=== PATIENT | female | born 1985 | race Caucasian/White ===

== ENCOUNTER 2020-01-24 21:57 | Emergency (ER) | payer OTHER ==
[2020-01-24 22:25] LABS: Bilirubin Negative (Negative); Blood, Urine Negative (Negative); Clarity Clear (Clear); Glucose, Urine (Dipstick) Normal (Negative); Leukocyte Negative Leu/uL (Negative); Nitrite Negative (Negative); Protein, Urine (Dipstick) Negative (Neg-Trace); Urobilinogen Normal mg/dL (Less than 2)
[2020-01-24 22:37] LABS: #Eosinphils 0.1 thou/uL (0.0-0.7); #Lymphocytes 3.1 thou/uL (1.20-3.40); #Monocytes 0.6 thou/uL (0.11-0.59); #Neutrophils 5.2 thou/uL (1.40-6.50); %Basophils 0.5 % (0.0-1.0); %Eosinophils 1.2 % (0.0-10.0); %Lymphocytes 34.1 % (21.0-51.0); %Neutrophils 57.3 % (42.0-75.0); Hemoglobin 13.4 g/dL (12.0-16.0); Mean Corpuscular HGB CONC 35.5 g/dL (32.0-36.0); Mean Corpuscular Hemoglobin 31.4 pg (27.0-31.0); Mean Corpuscular Volume 88.5 fL (78.0-98.0); Mean Platelet Volume 6.6 fL (7.4-10.4); Platelet Count 275 thou/uL (130-400); RBC Distribution Width 11.6 % (11.5-14.5); Red Blood Cell (RBC) Count 4.26 mill/uL (4.20-5.40); White Blood Cell (WBC) Count 9.1 thou/uL (4.8-10.8)
--- NOTE | 2020-01-24 23:11 | ULT ---
Exam: Endovaginal pelvic ultrasound HISTORY: Right lower quadrant pain. patient TECHNIQUE: Endovaginal imaging of the pelvis is performed. Ovaries are interrogated with grayscale, c olor flow, Doppler imaging and spectral waveform analysis FINDINGS: The uterus is identified, measuring 6.6 x 12.1 x 7.3 cm Within the endometrium, there is an anechoic focus which may represent a gestational sac. Mean sac di ameter is 1.1 cm, suggesting a gestational age of 5 weeks 6 days. No pole. Questionable yolk sac. Right ovary has a normal echotexture measuring 1.9 x 2.9 x 1.6 cm Left ovary has a normal echotexture measuring 3.1 x 2.9 x 2.5 cm No free fluid Ovarian Doppler: Vascular flow to both ovaries IMPRESSION: 1. Anechoic focus in the endometrium likely representing a gestational sac. Questionable yolk sac. No definite pole. Gestational age by mean sac diameter is 5 weeks 6 days. Findings likely representing early intrauterine gestation. Follow-up ultrasound and serial beta hCG is recommended.
== END 2020-01-24 23:24 | disposition home or self-care (01) ==
LOC: ERS 21:57
DX: O26.891 Other specified pregnancy related conditions, first trimester (principal); R10.31 Right lower quadrant pain; O99.211 Obesity complicating pregnancy, first trimester; E66.9 Obesity, unspecified; Z3A.01 Less than 8 weeks gestation of pregnancy
CPT/HCPCS: 36415; 76856; 81003; 84702; 85025; 86900; 86901

== ENCOUNTER 2020-06-04 14:51 | Day surgery (SDC) | payer OTHER ==
[2020-06-04 15:53] VITALS: BP 130/63; TEMP 98; BMI 48.4
[2020-06-04] MEDS ORDERED: hydrALAZINE 20 MG/ML VIAL SLOW IVP PRN (16:22)
--- NOTE | 2020-06-04 16:48 | PDOC.BPN ---
- Brief Progress Note H&P Addendum: Patient seen at bedside. Surgical HX also includes prior renal lithotripsy and sent placed (not sure of side...has been removed). On Exam: NAD No gross evidence of VB or LOF Valsalva and cough test neg at perineum Await results. I stated that SSE may still be required if evidence of leakage. I suspect this is sweat and moisture as there is alot of redundant folds at perninuem (BMI) Also, there is bilateral evidence of tinea crusis at inguinal area. RX with OTC antifungals. I explained the tests ordered to her and the FFN was collected in vase the CX is short.
--- NOTE | 2020-06-04 16:52 | HP ---
TIME OF EVALUATION: Roughly 1620. LOCATION: Labor and Delivery Triage. Patient of Dr. Coppola. EGA is 24 weeks. HISTORY OF PRESENT ILLNESS: This is a 34-year-old, G2, P1, who states that she is having lower pelvic pain that started as cramping and then was sharp pain, worsening at 0800 today. She states that the pain is lower pelvic and abdominal, but that the pressure is mainly vaginal. She has no vaginal bleeding or leakage of fluid. However, she does state that at the end of the day, her "panties are wet." She is unsure if this is sweat or true leakage of fluid. Nonetheless, per RN report, no gush of fluid has been reported. She has good movement. She has no fevers. REVIEW OF SYSTEMS: Complete review of systems was checked and is otherwise negative unless specified in the HPI. PAST MEDICAL HISTORY: Negative for diabetes or hypertension. She does have history of migraine. PAST SURGICAL HISTORY: Significant for past cholecystectomy and ventral hernia repair with mesh. OB HISTORY: She is a G2, P1 with one prior vaginal delivery at 41 weeks without issues. SOCIAL HISTORY: Otherwise negative. ALLERGIES: NO KNOWN DRUG ALLERGIES. PHYSICAL EXAMINATION: VITAL SIGNS: Show a blood pressure of 130/63, pulse is 18, O2 saturation is 98%. Temperature is 98.0, pulse is 94, and her BMI is 48.4. GENERAL: Clinically, she is in no acute distress. RESPIRATIONS: Unlabored per initial popcorn vendor. ABDOMEN: Nontender. There is no gross evidence of bleeding per popcorn vendor (my assessment is pending). MONITOR: heart tones are in the 140s and are reactive. There is no evidence of contractions on toco, but this may be reflection of her BMI. ASSESSMENT: This is a 34-year-old, G2, P1, at 24 weeks with lower pelvic pain, not otherwise specified. Unsure history of leakage of fluid. PLAN: 1. Although I do not suspect gross rupture of membranes, we will check AmniSure as a screen. At bedside, I will do a Valsalva check, and if there is evidence of leakage, we will perform sterile spec exam. 2. I have ordered a transvaginal ultrasound for cervical length due to her complaint of pelvic pressure at 24 weeks. 3. I have also ordered a cath UA to rule out UTI as the patient's cause of symptoms. 4. I have ordered a CMP and a CBC for conservative management. 5. No eminent evidence of labor at this time. Job ID: [id number]
[2020-06-04 17:00] LABS: Amnisure Internal Control QC ACCEPTABLE (ACCEPTABLE); Amnisure Test No Membranes Rupture (No Rupture)
[2020-06-04 17:01] LABS: Bacteria/HPF None Seen HPF (None Seen); Bilirubin Negative (Negative); Blood, Urine Negative (Negative); Clarity Clear (Clear); Glucose, Urine (Dipstick) Greater than 1000 mg/dL (Negative); Ketone, Urine Trace mg/dL (Negative); Leukocyte Negative Leu/uL (Negative); Nitrite Negative (Negative); Protein, Urine (Dipstick) Negative (Neg-Trace); RBC/HPF 0-3 HPF (0-3); Specific Gravity, Urine 1.033 (1.002-1.036); Squamous Epithelial 0-3 HPF (0-3); Urobilinogen Normal mg/dL (Less than 2); WBC/HPF 0-3 HPF (0-3); pH, Urine 5.5 (5.0-9.0)
[2020-06-04 17:06] LABS: Urine Culture Reflex No No
[2020-06-04 17:18] LABS: #Eosinphils 0.1 thou/uL (0.0-0.7); #Lymphocytes 2.2 thou/uL (1.20-3.40); #Monocytes 0.7 thou/uL (0.11-0.59); #Neutrophils 6.1 thou/uL (1.40-6.50); %Basophils 0.2 % (0.0-1.0); %Eosinophils 1.2 % (0.0-10.0); %Lymphocytes 23.9 % (21.0-51.0); %Monocytes 7.4 % (0.0-10.0); %Neutrophils 67.3 % (42.0-75.0); Hemoglobin 12.3 g/dL (12.0-16.0); Mean Corpuscular HGB CONC 33.6 g/dL (32.0-36.0); Mean Corpuscular Hemoglobin 29.3 pg (27.0-31.0); Mean Corpuscular Volume 87.2 fL (78.0-98.0); Mean Platelet Volume 6.8 fL (7.4-10.4); Platelet Count 242 thou/uL (130-400); White Blood Cell (WBC) Count 9.1 thou/uL (4.8-10.8)
[2020-06-04 17:34] LABS: ALT (SGPT) 12 U/L (8-55); AST (SGOT) 11 U/L (5-34); Albumin 3.6 g/dL (3.5-5.0); Alkaline Phosphatase 59 U/L (40-110); Anion Gap 12 mmol/L (10-20); BUN (Urea Nitrogen) 8 mg/dL (7.0-18.7); Bilirubin, Total 0.3 mg/dL (0.2-1.2); Calc. Creatinine Clearance 219 mL/min (70-130); Calcium 8.9 mg/dL (7.8-10.44); Carbon Dioxide 24 mmol/L (22-29); Chloride 102 mmol/L (98-107); Estimated GFR-MDRD Greater than 90; Glucose 138 mg/dL (70-105); Protein, Total 6.6 g/dL (6.0-8.3); Sodium 134 mmol/L (136-145)
--- NOTE | 2020-06-04 17:46 | ULT ---
Exam: Limited OB ultrasound TECHNIQUE: Transabdominal and endovaginal imaging of the pelvis is performed. HISTORY: 24 week patient. Evaluate cervical length. FINDINGS: position: Transverse heart tones: 143 bpm Cervix: There is a 4 cm anechoic focus in the cervix likely representing a nabothian cyst. Cervical length: 4 cm. IMPRESSION: Cervical length is 4 cm.
--- NOTE | 2020-06-04 18:38 | PDOC.BPN ---
- Brief Progress Note Pt is a 34yo @ 24wks who presents for evaluation of abdominal pain. We were asked to come and see patient, review labs and inform her she is stable for discharge due to program consultant laborist and back up being called in for emergency surgery. I spoke with patient and informed her that Amnisure was negative, Vag US showed cervical length of 4cm, labs were unremarkable except for UA showing glucose. VSS and within normal limits. FHT were cat 1 with baseline 140s, mod variability, no accels or decels. Patient states that she has a follow up appointment with Dr Coppola next , and that her abdominal pain has mostly resolved and only feels like some "pressure down there". Pt had no questions, felt comfortable with discharge today and will f/u with tool and die manager next week. Ann Bobo, PGY1. Dayami Hastings, PGY3
--- NOTE | 2020-06-04 19:07 | PDOC.BPN ---
- Brief Progress Note PostDischarge note: Patient completed her eval with the house officers assuming care as I was called for an urgent emergency in the OR. Please see their notes.
== END 2020-06-04 18:52 | disposition home or self-care (01) ==
LOC: L&D/OP 14:51
PROVIDERS: ATTEND Obstetrics & Gynecology
DX: O99.89 Other specified diseases and conditions complicating pregnancy, childbirth and the puerperium (principal); R10.2 Pelvic and perineal pain; O09.522 Supervision of elderly multigravida, second trimester; Z3A.24 24 weeks gestation of pregnancy
CPT/HCPCS: 36415; 51701; 80053; 81001; 84112; 85025; 99284

== ENCOUNTER 2020-08-24 11:59 | Day surgery (SDC) | payer OTHER ==
[2020-08-24 12:48] VITALS: BMI 50.5
--- NOTE | 2020-08-24 13:16 | PDOC.LDHP ---
Labor and Delivery H&P HPI: CC: Possible CTX at 35 weeks [address] Coppola HPI: 34 yo with last delivery complicated with shoulder dystocia, here with poss CTX every 3-5 minutes or so since 1030 this AM. No VB, no LOF. She has gestational DM on Lantus and known poly. This baby will be via CS. Review of Systems: no LOF, no VB, no cough, no MARIE, good FM, no changes in vision. Current gestational age (weeks): 35 (6 days) Dating criteria: last menstrual period Grav: 3 Para: 1 OB History Details: HX gest DM on Lantus this . Has known Poly This will be vis CS as scheduled per Anat Current complications: gestational diabetes (Lantus) Abnormal US findings: Yes (Poly in past) Past Medical History: None Current medications: pre- vitamins, other (Lantus) Allergies/Adverse Reactions: Allergies Allergy/AdvReac Type Severity Reaction Status Date / Time No Known Allergies Allergy Unverified 08/24/20 12:46 Social history: none - Physical Exam Vital signs reviewed and normal: yes (88 97% RR20 124/69) General: resting Lungs: CTAB Abdomen: gravid (poly) Extremeties: no edema FHT: category 1 [place] contractions every: irritability - Assessment 35 weeks 6 days late with GDM, on lantus, poly, r/o labor - Plan Plan: observation in L&D (check CX (RN doing now). I have seen her at bedside Plan reviewed. reviewed poly and GDM with her.)
[2020-08-24] MEDS ORDERED: hydrALAZINE 20 MG/ML VIAL SLOW IVP PRN (13:20)
--- NOTE | 2020-08-24 13:21 | PDOC.BPN ---
- Brief Progress Note Patient seen See H&P NST done for GDM and Poly...reactive
== END 2020-08-24 13:47 | disposition home or self-care (01) ==
LOC: L&D/OP 11:59
PROVIDERS: ATTEND Obstetrics & Gynecology
DX: O47.03 False labor before 37 completed weeks of gestation, third trimester (principal); O24.414 Gestational diabetes mellitus in pregnancy, insulin controlled; O09.523 Supervision of elderly multigravida, third trimester; Z3A.35 35 weeks gestation of pregnancy
CPT/HCPCS: 99282

== ENCOUNTER 2020-09-04 09:22 | Inpatient (IN) | payer OTHER ==
[2020-09-04 10:06] VITALS: BMI 51.0
[2020-09-04] MEDS ORDERED: FLU VACC QS2020-21(6MOS UP)/PF 60 MCG/0.5 ML SYRINGE IM ONE (10:15)
[2020-09-04] MEDS ORDERED: hydrALAZINE 20 MG/ML VIAL SLOW IVP PRN ×3 (10:37→16:10)
--- NOTE | 2020-09-04 10:41 | PDOC.BPN ---
- Brief Progress Note OBGYN L&D Triage note 1040 Triage A Noted patient's arrival with possible LOF as CC Patient of Dr Coppola Triage assessment pending Amnisure sent and pending NST ordered for GDM HX and polyhrdamnios, known. This will be a scheduled CS at delivery per jessica See full H&P
[2020-09-04 10:44] LABS: Amnisure Test RUPTURE DETECTED (No Rupture)
[2020-09-04 10:45] LABS: Amnisure Internal Control QC ACCEPTABLE (ACCEPTABLE)
[2020-09-04] MEDS ORDERED: Bicitra 30 ML UDCUP PO PRN (11:27)
[2020-09-04] MEDS ORDERED: Famotidine/PF 20 mg/2ml Vial SLOW IVP PRN (11:27)
[2020-09-04] MEDS ORDERED: Promethazine HCl 25 MG/ML VIAL IM PRN ×2 (11:27→17:35)
[2020-09-04] MEDS ORDERED: Butorphanol Tartrate 1 MG/ML VIAL SLOW IVP PRN (11:27)
[2020-09-04] MEDS ORDERED: Ondansetron PF 4 MG/2 ML Vial IVP PRN ×2 (11:27→17:35)
[2020-09-04] MEDS ORDERED: CEFAZOLIN 2 GM in Premix Bag 1 BAG IVPB SCH (11:30)
[2020-09-04] MEDS ORDERED: Azithromycin 500 MG in Sodium Chloride 0.9% 250 ML 250 ML IVPB SCH (11:30)
[2020-09-04] MEDS: Lactated Ringer's 1,000 ML IV SCH ×2 (11:40→19:30)
--- NOTE | 2020-09-04 12:08 | HP ---
TIME OF EVALUATION: Roughly 1115. LOCATION: Labor and delivery triage. PATIENT OF: Magui Coppola MD. CHIEF COMPLAINT: Possible leakage of fluid earlier this morning. HISTORY OF PRESENT ILLNESS: This is a 34-year-old multigravida who is a G3, P1 with the last delivery complicated by shoulder dystocia who is actually scheduled for a for this on 09/16. She also has a known gestational diabetes and has been on Lantus with good control. She also has known polyhydramnios for this , and she has been followed for that. Because she complained of possible leakage of fluid of clear fluid, she came in for evaluation. She does not have any complaints of headaches, visual changes, or any decrease in movement. She does not have a history of recent trauma or vaginal bleeding. REVIEW OF SYSTEMS: Complete review of systems was checked and is otherwise negative unless specified in the HPI. GENERAL: There is no cough or fever or chills. RESPIRATORY: There is no shortness of breath. GI: It has been negative for constipation or diarrhea per nursing survey. Abdomen is otherwise within normal with no further related symptoms. OB: Positive for movement. : There is no dysuria or abnormal vaginal discharge outside of the leakage of fluid. PAST MEDICAL HISTORY: Significant for her gestational diabetes. MEDICATIONS: Include Lantus and vitamins. PAST SURGICAL HISTORY: Noncontributory based on record review. ALLERGIES: NONE. SOCIAL HISTORY: Negative for alcohol, tobacco, and drug use. PHYSICAL EXAMINATION: VITAL SIGNS: Stable, and they are within normal limits. Blood pressure is 116/80, and she is afebrile. Pulse is in the 80s. GENERAL: She is in no acute distress. ABDOMEN: Potentially large for dates, but the patient is obese, but otherwise nontender. PELVIC: On perineal inspection, there is no gross evidence of bleeding or gross evidence of ruptured membranes. The cough test was actually negative. However, when we performed a sterile speculum exam, there is abundant clear fluid that was pooling in the posterior fornix compatible with ruptured membranes. STERILE SPECULUM NOTE: Sterile speculum was performed per usual routine after being explained to the patient. There is gross evidence of clear fluid ruptured membranes. DIGITAL CERVICAL EXAM: Deferred as not to introduce infection. MONITOR: heart tones are reactive in the 130s to 140s with no pathological decelerations. There are no contractions on tocodynamometer, but this may be affected by her BMI. ASSESSMENT: This is a patient who is at 37 weeks and about 4 days with pre-labor rupture of membranes (early term). She also has a history of gestational diabetes. She also has a history of polyhydramnios. PLAN: 1. Admission to Labor and Delivery. 2. N.p.o. status. 3. Because of her diabetic status, we have ordered a D-stick/Accu-Chek and that Accu-Chek is normal. That value was 83. 4. I have requested that Janeth, the patient's nurse, contact Dr. Coppola for scheduling of her . Because she last ate at around 8, she will likely have her primary section about 6-8 hours afterwards, but this is based on anesthesia opinion and commentary. 5. We have ordered a type and screen per surgical routine. 6. NICU at delivery for the polyhydramnios eval and the history of gestational diabetes. Job ID: [id number]
[2020-09-04 12:54] LABS: Hemoglobin 13.5 g/dL (12.0-16.0); Mean Corpuscular HGB CONC 34.7 g/dL (32.0-36.0); Mean Corpuscular Hemoglobin 30.5 pg (27.0-31.0); Mean Corpuscular Volume 87.7 fL (78.0-98.0); Mean Platelet Volume 8.3 fL (7.4-10.4); Platelet Count 208 thou/uL (130-400); RBC Distribution Width 12.7 % (11.5-14.5); Red Blood Cell (RBC) Count 4.43 mill/uL (4.20-5.40); White Blood Cell (WBC) Count 8.7 thou/uL (4.8-10.8)
[2020-09-04 13:29] LABS: HBSAg Index 0.15 S/CO (0-0.99); HIV (1/2) Antibody/Antigen Non-Reactive (NonReactive); HIV 1/2 INDEX 0.06 S/CO (<1.00); Hep B Surf Ag Non-Reactive S/CO (NonReactive)
[2020-09-04] MEDS ORDERED: Oxytocin 10 UNITS/ML VIAL ONE (16:08)
[2020-09-04] MEDS ORDERED: Morphine PF 10 MG/10 ML VIAL ONE (16:08)
[2020-09-04] MEDS ORDERED: Misoprostol 200 MCG TAB PR PRN (16:10)
[2020-09-04] MEDS ORDERED: Zolpidem Tartrate 5 MG TAB PO PRN (16:10)
[2020-09-04] MEDS ORDERED: HYDROcodone/Acetaminophen 5/325 mg Tablet PO PRN ×2 (16:10)
[2020-09-04] MEDS ORDERED: Acetaminophen 325 MG TAB PO PRN (16:10)
[2020-09-04] MEDS ORDERED: diphenhydrAMINE 25 MG CAP PO PRN (16:10)
[2020-09-04] MEDS ORDERED: Bisacodyl 10 MG SUPP PR PRN (16:10)
[2020-09-04] MEDS ORDERED: NS / Oxytocin 40 units/1000ml 1,000 ML IV SCH (16:15)
[2020-09-04 17:16] LABS: SARS-CoV-2 MS2 Positive; SARS-CoV-2 N Gene Negative; SARS-CoV-2 S Gene Negative; SARS-CoV-2 by NAA Not Detected (NotDetected); SARS-CoV-2 orf1ab Negative
[2020-09-04] MEDS ORDERED: HYDROmorphone 2 MG/ML VIAL SLOW IVP PRN (17:35)
[2020-09-04] MEDS ORDERED: Naloxone HCl 0.4 mg/ml Vial IV PRN (17:35)
[2020-09-04] MEDS ORDERED: diphenhydrAMINE 50 MG/ML VIAL IVP PRN (17:35)
[2020-09-04] MEDS ORDERED: Meperidine HCl/PF 25 MG/ML VIAL SLOW IVP PRN (17:35)
[2020-09-04] MEDS ORDERED: Naloxone HCl 0.4 mg/ml Vial IVP PRN ×2 (17:35)
[2020-09-04] MEDS ORDERED: L&D-Morphine 4 MG/ML VIAL SLOW IVP PRN (17:35)
[2020-09-04] MEDS ORDERED: Promethazine HCl 25 MG SUPP PR PRN (17:35)
[2020-09-04] MEDS ORDERED: Ondansetron HCl/PF 4 MG/2 ML Vial IVP PRN (17:35)
[2020-09-04] MEDS ORDERED: Ketorolac Tromethamine 30 MG/ML VIAL IVP SCH (17:45)
[2020-09-04] MEDS ORDERED: Communication Order-Pharmacy FS SCH (17:45)
[2020-09-04] MEDS ORDERED: Adacel (T-DAP) 0.5 ML SYRINGE IM ONE (18:00)
[2020-09-04] MEDS ORDERED: Ondansetron PF 4 MG/2 ML Vial ONE (18:16)
[2020-09-04] MEDS ORDERED: Ketorolac Tromethamine 30 MG/ML VIAL ONE (18:32)
[2020-09-04] MEDS: Ketorolac Tromethamine 30 MG/ML VIAL IVP PRN (18:33)
[2020-09-04] MEDS: Docusate Calcium (SURFAK) 240 MG CAP PO SCH (21:00)
[2020-09-04] MEDS ORDERED: Ibuprofen 800 MG TAB PO SCH (22:00)
--- NOTE | 2020-09-04 23:51 | OP ---
DATE OF PROCEDURE: 09/04/2020 PREOPERATIVE DIAGNOSES: 1. A 34-year-old white female G3, P1, A1 at 37-38 weeks gestation. 2. Spontaneous rupture of membranes. 3. History of polyhydramnios. 4. Class A2 gestational diabetes. 5. Large for gestational age infant. 6. Prior shoulder dystocia history. POSTOPERATIVE DIAGNOSES: 1. A 34-year-old white female G3, P1, A1 at 37-38 weeks gestation. 2. Spontaneous rupture of membranes. 3. History of polyhydramnios. 4. Class A2 gestational diabetes. 5. Large for gestational age . 6. Prior shoulder dystocia history. PROCEDURE PERFORMED: Primary low-transverse section without extension. CABLE TOOL OPERATOR SURGEON: Dr. Cervantes from [facility]. ANESTHESIA: Spinal block. ESTIMATED BLOOD LOSS: 450 mL. COMPLICATIONS: None. COUNTS: Correct x2. ANTIBIOTICS: Ancef and Zithromax per protocol. FINDINGS: 1. Vigorous male , occiput posterior presentation, copious amniotic fluid again noted that was clear. Apgars were 8 and 9. weight 8 pounds 15 ounces. 2. Normal-appearing uterus, tubes, and ovaries. 3. Clear urine present in Miranda catheter postprocedure. DISPOSITION: Recovery room, stable. DESCRIPTION OF OPERATIVE PROCEDURE: The patient previously received informed consent in regard to surgery. She was taken back to the operating room, where she received a spinal block and then was placed in supine position, prepped and draped in usual sterile fashion. Miranda catheter was placed at this time along with SCDs. The pannus of the lower abdomen had been taped prior to the prep with silk tape to expose the lower abdominal region. A Pfannenstiel incision was made 2 cm above the symphysis pubis. This was carried down to the fascia. Fascia was nicked in the midline and fascial incision was extended bilaterally with use of curved Fernandez scissors. The rectus fascia was then dissected sharply and bluntly superiorly and inferiorly. The rectus muscles were divided in the midline. Peritoneal cavity was entered and this was extended. A bladder blade was placed and a 2 cm hysterotomy incision was then made above the vesicouterine peritoneal reflection. This was extended via finger fractionation, and the baby was delivered in the vertex presentation, noted to be OP. Mouth and nares of the infant were bulb suctioned on the abdomen. The cord was doubly clamped and cut, and handed to the pediatric nurses in attendance. Usual cord blood was obtained. The placenta was manually extracted. The uterus remained in situ in the abdomen and we removed any remaining of the placental membranes with a dry laparotomy sponge. The edges of the hysterotomy incision had been grasped with ring forceps. The hysterotomy incision was then closed with #1 Monocryl suture in running locking fashion, securing hemostasis. The pelvis was irrigated and suctioned, and hemostasis of the hysterotomy site and pelvis again was confirmed. We then closed the fascia with 0 PDS suture x2 in running continuous fashion. Subcutaneous tissue was irrigated and noted to be hemostatic. The subcutaneous tissue was approximated with 3-0 plain gut in running continuous fashion. The skin was then closed with césar. Surgery was terminated. No anesthetic or surgical complications occurred. Job ID: [id number]
[2020-09-05] LABS: Syphilis Antibody Nonreactive (Nonreactive); Syphilis Antibody Index 0.04 S/CO (<1.00 Non-Reactive)
[2020-09-05] MEDS: Lactated Ringer's 1,000 ML IV SCH ×3 (02:30→23:59)
[2020-09-05] MEDS ORDERED: Zolpidem Tartrate 5 MG TAB PO PRN (05:45)
[2020-09-05] MEDS ORDERED: Butorphanol Tartrate 1 MG/ML VIAL SLOW IVP PRN (05:45)
[2020-09-05] MEDS ORDERED: HYDROcodone/Acetaminophen 5/325 mg Tablet PO PRN (05:45)
--- NOTE | 2020-09-05 06:37 | PDOC.PP ---
Post Progress Note Post Day #: 1(POD1) Subjective: Doing well, ambulating. PO intake tolerated: yes Flatus: yes Ambulation: yes Vital Signs (12 hours) Temp Pulse Resp BP Pulse Ox 09/05/20 00:10 97.9 F 84 18 115/59 L 09/04/20 20:55 97.4 F L 81 18 115/60 09/04/20 19:55 97.6 F 73 18 128/62 95 Weight Weight 261 lb Accuchecks have been in 80s - Physical Examination General: NAD Respiratory: non-labored breathing Abdominal: lochia, no distention, appropriately TTP Extremities: negative homans (B) Skin: CS incision dry & intact (Dressing in place,per Op note: stples in use), no rash Neurological: no gross focal deficits Psychiatric: A&Ox3, normal affect Result Diagrams: 09/04/20 11:32 Additional Labs: Post Labs Hep Bs Antigen Non-Reactive S/CO (NonReactive) 09/04/20 11:33 Blood Type B POSITIVE 09/04/20 11:33 - Assessment/Plan POD1 from Primary CS for PROM, HX shoulder dystocia, polyhydramnios and GDM...doing well. Plan: 1. change to QAM acchuchecks as dticks are OK 2. Ambulate 3. Remove dressing at around 24 hrs 4. Miranda now out 5. Doing well. BPs ok.
[2020-09-05] MEDS: Ketorolac Tromethamine 30 MG/ML VIAL IVP PRN (07:21)
[2020-09-05 07:31] LABS: Hemoglobin 11.9 g/dL (12.0-16.0); Mean Corpuscular Hemoglobin 29.7 pg (27.0-31.0); Mean Corpuscular Volume 87.3 fL (78.0-98.0); Mean Platelet Volume 7.2 fL (7.4-10.4); Platelet Count 175 thou/uL (130-400); RBC Distribution Width 12.8 % (11.5-14.5); White Blood Cell (WBC) Count 10.2 thou/uL (4.8-10.8)
[2020-09-05] MEDS: Simethicone Chewable 80 MG TAB PO PRN (09:06)
[2020-09-05] MEDS: Docusate Calcium (SURFAK) 240 MG CAP PO SCH ×2 (09:06→21:15)
[2020-09-05] MEDS: Prenatal Vitamin 1 TAB PO SCH (09:06)
[2020-09-05 09:19] LABS: Glucose 62 mg/dL (70-105)
[2020-09-05] MEDS: Ibuprofen 800 MG TAB PO SCH ×2 (14:14→21:07)
[2020-09-05] MEDS: HYDROcodone/Acetaminophen 5/325 mg Tablet PO PRN (17:02)
[2020-09-06] MEDS: Ibuprofen 800 MG TAB PO SCH ×3 (04:23→20:48)
[2020-09-06] MEDS: HYDROcodone/Acetaminophen 5/325 mg Tablet PO PRN ×4 (04:25→20:48)
[2020-09-06] MEDS: Lactated Ringer's 1,000 ML IV SCH ×3 (05:16→18:30)
--- NOTE | 2020-09-06 06:48 | PDOC.PP ---
Post Progress Note Post Day #: 1.5 PO intake tolerated: yes Flatus: yes Ambulation: yes Vital Signs (12 hours) Temp Pulse Resp BP Pulse Ox 09/06/20 04:20 97.9 F 82 18 109/58 L 09/06/20 00:25 97.7 F 89 18 110/55 L 09/05/20 21:00 98.1 F 84 18 104/58 L 98 Weight Weight 261 lb - Physical Examination General: NAD Cardiovascular: no m/r/g, RRR Respiratory: clear to auscultation bilaterally, non-labored breathing Abdominal: + bowel sounds, lochia, no distention, appropriately TTP Extremities: negative homans (B) Skin: CS incision dry & intact, no rash Neurological: no gross focal deficits Psychiatric: normal affect Result Diagrams: 09/05/20 07:17 09/05/20 07:18 Additional Labs: Post Labs Hep Bs Antigen Non-Reactive S/CO (NonReactive) 09/04/20 11:33 Blood Type B POSITIVE 09/04/20 11:33 - Assessment/Plan Doing well pod 1.5 continue current care and home tomorrow am. Sars COV neg
[2020-09-06] MEDS: Prenatal Vitamin 1 TAB PO SCH (08:37)
[2020-09-06] MEDS: Simethicone Chewable 80 MG TAB PO PRN (08:37)
[2020-09-06] MEDS: Docusate Calcium (SURFAK) 240 MG CAP PO SCH ×2 (08:37→20:48)
[2020-09-06 16:26] VITALS: TEMP 98.1
[2020-09-07] MEDS: Ibuprofen 800 MG TAB PO SCH ×2 (06:07→13:47)
[2020-09-07] MEDS: Lactated Ringer's 1,000 ML IV SCH ×2 (06:55→13:48)
--- NOTE | 2020-09-07 07:48 | PDOC.PP ---
Post Progress Note Post Day #: 3 Subjective: Ambulating, voiding, tolerating diet. O:AFVSS. Accucheks 60-90--no insulin ABDOMEN soft/non distended. Incision healing well A/P: Post op day3 from primary c/section. Doing well. Glycemic control adequate on no meds. D/c to Bed and Breakfast. RX for pain meds and césar oput in my office 09/11-post op day 7... Vital Signs (12 hours) Temp Pulse Resp BP Pulse Ox 09/06/20 20:40 98.1 F 97 18 120/68 100 Weight Weight 261 lb Result Diagrams: 09/05/20 07:17 09/05/20 07:18 Additional Labs: Post Labs Hep Bs Antigen Non-Reactive S/CO (NonReactive) 09/04/20 11:33 Blood Type B POSITIVE 09/04/20 11:33
[2020-09-07 08:11] VITALS: BP 119/66
[2020-09-07] MEDS: Prenatal Vitamin 1 TAB PO SCH (08:40)
[2020-09-07] MEDS: Docusate Calcium (SURFAK) 240 MG CAP PO SCH (08:40)
== END 2020-09-07 15:45 | disposition home or self-care (01) | DRG 788 ==
LOC: L&D/OP 09:22 → L&D 11:27 → 3SW 19:55
PROVIDERS: ADMIT Obstetrics & Gynecology; ATTEND Obstetrics & Gynecology
PROC: 10D00Z1 Extraction of Products of Conception, Low, Open Approach (ICD-10-PCS; principal; 2020-09-04)
DX: O24.424 Gestational diabetes mellitus in childbirth, insulin controlled (principal); Z20.828 Contact with and (suspected) exposure to other viral communicable diseases; O40.3XX0 Polyhydramnios, third trimester, not applicable or unspecified; O36.63X0 Maternal care for excessive fetal growth, third trimester, not applicable or unspecified; Z3A.37 37 weeks gestation of pregnancy; Z37.0 Single live birth; O64.0XX0 Obstructed labor due to incomplete rotation of fetal head, not applicable or unspecified
CPT/HCPCS: 36415; 36416; 51702; 82947; 84112; 85027; 86780; 86850; 86900; 86901; 87340; 87389; 87635; 99285; J0456; J0690; J1885; J2270; J2405; J7050; U0003

== ENCOUNTER 2020-11-20 22:13 | Emergency (ER) | payer OTHER ==
[2020-11-21 05:03] LABS: SARS-CoV-2 PCR by NAA DETECTED (NotDetected)
== END 2020-11-20 23:10 | disposition home or self-care (01) ==
LOC: ERS 22:13
DX: U07.1 COVID-19 (principal); E66.9 Obesity, unspecified
CPT/HCPCS: 87635; 99283; U0003; U0005

== ENCOUNTER 2021-10-30 15:04 | Emergency (ER) | payer OTHER ==
[2021-10-30 15:43] LABS: Bilirubin Negative (Negative); Blood, Urine Negative (Negative); Clarity Clear (Clear); Glucose, Urine (Dipstick) Greater than 1000 mg/dL (Negative); Ketone, Urine Trace mg/dL (Negative); Leukocyte Negative Leu/uL (Negative); Nitrite Negative (Negative); Protein, Urine (Dipstick) Negative (Neg-Trace); Urobilinogen Normal mg/dL (Less than 2); pH, Urine 5.5 (5.0-9.0)
[2021-10-30 16:19] LABS: #Eosinphils 0.1 thou/uL (0.0-0.7); #Lymphocytes 2.4 thou/uL (1.20-3.40); #Monocytes 0.4 thou/uL (0.11-0.59); #Neutrophils 3.8 thou/uL (1.40-6.50); %Basophils 0.6 % (0.0-1.0); %Eosinophils 1.4 % (0.0-10.0); %Lymphocytes 35.7 % (21.0-51.0); %Monocytes 5.9 % (0.0-10.0); %Neutrophils 56.5 % (42.0-75.0); Hemoglobin 14.1 g/dL (12.0-16.0); Mean Corpuscular HGB CONC 34.9 g/dL (32.0-36.0); Mean Corpuscular Hemoglobin 30.6 pg (27.0-31.0); Mean Corpuscular Volume 87.8 fL (78.0-98.0); Mean Platelet Volume 6.8 fL (7.4-10.4); Platelet Count 227 thou/uL (130-400); RBC Distribution Width 11.6 % (11.5-14.5); Red Blood Cell (RBC) Count 4.61 mill/uL (4.20-5.40); White Blood Cell (WBC) Count 6.8 thou/uL (4.8-10.8)
[2021-10-30 16:37] LABS: BHCG - Serum Negative (NEGATIVE); Pregs Control Background? CLEAR/WHITE (CLR/WHITE); Pregs Control Bar Appear? YES (CONTROL BAR)
[2021-10-30 16:49] LABS: ALT (SGPT) 32 U/L (8-55); AST (SGOT) 23 U/L (5-34); Albumin 4.1 g/dL (3.5-5.0); Alkaline Phosphatase 82 U/L (40-110); Anion Gap 14 mmol/L (10-20); BUN (Urea Nitrogen) 16 mg/dL (7.0-18.7); Bilirubin, Total 0.3 mg/dL (0.2-1.2); Calc. Creatinine Clearance 0 mL/min (70-130); Calcium 9.2 mg/dL (7.8-10.44); Carbon Dioxide 26 mmol/L (22-29); Chloride 102 mmol/L (98-107); Globulin 3.4 g/dL (2.4-3.5); Glucose 291 mg/dL (70-105); Potassium 4.1 mmol/L (3.5-5.1); Protein, Total 7.5 g/dL (6.0-8.3); Sodium 138 mmol/L (136-145)
[2021-10-30] MEDS ORDERED: Ketorolac Tromethamine 30 MG/ML VIAL ONE (17:44)
[2021-11-01 09:25] LABS: Chlamydia by PCR Not Detected (NotDetected); GC by PCR Not Detected (NotDetected)
== END 2021-10-30 20:14 | disposition home or self-care (01) ==
LOC: ERS 15:04
DX: R10.32 Left lower quadrant pain (principal); E11.9 Type 2 diabetes mellitus without complications; E66.9 Obesity, unspecified; Z79.84 Long term (current) use of oral hypoglycemic drugs
CPT/HCPCS: 76856; 80053; 81003; 84703; 85025; 87491; 87591; 93976; 96374; J1885

== ENCOUNTER 2022-02-18 09:29 | Emergency (ER) | payer OTHER ==
[2022-02-18 09:48] LABS: #Basophils 0.1 thou/uL (0.0-0.2); #Eosinphils 0.1 thou/uL (0.0-0.7); #Lymphocytes 2.6 thou/uL (1.20-3.40); #Monocytes 0.6 thou/uL (0.11-0.59); #Neutrophils 4.4 thou/uL (1.40-6.50); %Basophils 0.8 % (0.0-1.0); %Eosinophils 1.4 % (0.0-10.0); %Lymphocytes 33.5 % (21.0-51.0); %Monocytes 7.1 % (0.0-10.0); %Neutrophils 57.2 % (42.0-75.0); Hemoglobin 14.6 g/dL (12.0-16.0); Mean Corpuscular HGB CONC 33.9 g/dL (32.0-36.0); Mean Corpuscular Hemoglobin 30.1 pg (27.0-31.0); Mean Corpuscular Volume 88.8 fL (78.0-98.0); Mean Platelet Volume 6.5 fL (7.4-10.4); Platelet Count 313 thou/uL (130-400); RBC Distribution Width 11.8 % (11.5-14.5); Red Blood Cell (RBC) Count 4.85 mill/uL (4.20-5.40); White Blood Cell (WBC) Count 7.8 thou/uL (4.8-10.8)
[2022-02-18 11:00] LABS: Bacteria/HPF None Seen HPF (None Seen); Bilirubin Negative (Negative); Blood, Urine 3+ (Negative); Clarity Clear (Clear); Glucose, Urine (Dipstick) 500 mg/dL (Negative); Ketone, Urine Negative (Negative); Leukocyte Negative Leu/uL (Negative); Nitrite Negative (Negative); Protein, Urine (Dipstick) Negative (Neg-Trace); RBC/HPF Greater than 50 HPF (0-3); Specific Gravity, Urine 1.028 (1.002-1.036); Urobilinogen Normal mg/dL (Less than 2); WBC/HPF 0-3 HPF (0-3); pH, Urine 5.5 (5.0-9.0)
== END 2022-02-18 12:34 | disposition home or self-care (01) ==
LOC: ERS 09:29
DX: O20.9 Hemorrhage in early pregnancy, unspecified (principal); O24.911 Unspecified diabetes mellitus in pregnancy, first trimester; E11.9 Type 2 diabetes mellitus without complications; O99.211 Obesity complicating pregnancy, first trimester; Z79.899 Other long term (current) drug therapy
CPT/HCPCS: 36415; 76856; 81003; 81015; 84702; 85025; 86900; 86901